=== PATIENT | male | born 1970 | race Caucasian/White ===

== ENCOUNTER 2016-07-10 09:41 | Observation (INO) | payer BC, OTHER ==
[~2016-07-10] VITALS: Ht 182.9 cm; Wt 100.5 kg
[~2016-07-10 09:41] MED LIST: ASPI81TA28 PO; IBUP-1050 PO; LPR25 PO; NTRGSL/4 UT; PNC/500 PO; SIMV20TA2 PO
[2016-07-10] MEDS ORDERED: NITROGLYCERIN 0.4 MG SL PER TAB CHARGE SL STA (10:06)
[2016-07-10] MEDS ORDERED: ASPIRIN 324 MG CHEW PO STA (10:06)
--- NOTE | 2016-07-10 10:28 | DIAGNOSTIC IMAGING REPORT ---
CHEST ONE VIEW PORTABLE HISTORY: Atypical chest pain COMPARISON: Chest 11/12/2015. FINDINGS: The lungs are clear. Cardiac silhouette is normal in size. No pleural effusions. No pneumothorax. IMPRESSION: No acute process. Electronically signed by: James Doty M.D. 07/10/2016 10:27 AM Dictated Date/Time: 07/10/2016 10:26 AM
[2016-07-10 10:32] LABS: BASO % 0.3 %; BASO ABS # 0.03 K/uL (0-0.2); COMPLETE YES; EOS % 2.5 %; HEMATOCRIT 47.1 % (42-52); IG% 0.3 %; LYMPH % 17.4 %; LYMPH ABS # 1.81 K/uL (1.2-3.4); MEAN CELL VOLUME 89.2 fL (80-100); MEAN CORPUSCULAR HEMOGLOBIN 30.1 pg (25-34); MEAN CORPUSCULAR HGB CONC 33.8 g/dl (32-36); MEAN PLATELET VOLUME 9.8 fL (7.4-10.4); MONO % 6.3 %; NEUT % 73.2 %; PLATELET COUNT 255 K/uL (130-400); RED BLOOD COUNT 5.28 M/uL (4.7-6.1); WHITE BLOOD COUNT 10.39 K/uL (4.8-10.8)
[2016-07-10 10:44] LABS: BLOOD UREA NITROGEN 16 mg/dl (7-18); BUN/CREATININE RATIO 19.2 (10-20); CALCIUM 8.7 mg/dl (8.5-10.1); CARBON DIOXIDE 28 mmol/L (21-32); CHLORIDE 107 mmol/L (98-107); CREATININE 0.85 mg/dl (0.60-1.40); GLUCOSE 102 mg/dl (70-99); POTASSIUM 3.9 mmol/L (3.5-5.1); SODIUM 141 mmol/L (136-145)
--- NOTE | 2016-07-10 11:35 | EMERGENCY ROOM VISIT NOTE ---
History First contact with patient: 09:56 Chief Complaint: SHORTNESS OF BREATH Stated Complaint: BURNING PAIN IN L SIDE OF CHEST SOB Nursing Triage Summary: Pt states when he woke up "there was like a fire right here in my chest" points to left lateral chest. "and I'm having trouble getting complete breaths". History of Present Illness The patient is a 46 year old male who presents to the Emergency Room with complaints of chest pain. The patient has had a 3 day history of dull chest discomfort radiating to the left shoulder. This morning the patient states the pain was sharp, continuous, and felt like a poker to the left side of his chest. He also complains of left arm numbness and tingling over the posterior aspect of the left arm with numbness in his finger tips. He also says that he is having pain when taking deep breaths. The patient also complains of blurriness of vision this morning upon waking up. The patient has a history of LAD stent in 2012 and has been seen by Cardiology but has not been taking his prescribed medications or following up recently due to a lack of insurance. He has been taking a baby aspirin until a few days ago when he ran out. He denies any fevers, chills, nausea, vomiting, abdominal pain, and dizziness. Review of Systems See HPI for pertinent positives and negatives. A total of ten systems were reviewed and were otherwise negative. Past Medical/Surgical History Medical Problems: (1) Asthma (2) CAD (coronary artery disease) (3) Dyslipidemia (4) Epilepsy (5) History of placement of stent in LAD coronary artery (6) Hypertension Surgical Problems: (1) History of hip surgery (2) Hx of cardiac cath Family History Alchohol abuse FATHER Angina MOTHER CABG FATHER GRANDFATHER (50's) Dyslipidemia FATHER BROTHER Hypertension FATHER MOTHER Irregular heart rhythms BROTHER WI in 20's or 30's FATHER Social History Smoking Status: Current Every Day Smoker Alcohol Use: none Drug Use: marijuana, other Marital Status: Housing Status: lives with family Occupation Status: employed Current/Historical Medications No Active Prescriptions or Reported Meds Allergies Coded Allergies: No Known Allergies (Unverified , 07/10/16) Physical Exam Vital Signs Date Time Temp Pulse Resp B/P Pulse Ox O2 Delivery O2 Flow Rate FiO2 07/10/16 10:14 74 07/10/16 09:49 36.7 78 20 131/90 99 Room Air 07/10/16 09:48 97 Room Air Physical Exam GENERAL: Awake, alert, well-appearing, in mild distress HENT: Normocephalic, atraumatic. EYES: Normal conjunctiva. Sclera non-icteric. NECK: Supple. Trachea midline RESPIRATORY: Decreased breath sounds, Good inspiratory effort CARDIAC: Regular rate, normal rhythm. Extremities warm and well perfused. Pulses equal. ABDOMEN: Soft, non-distended. No tenderness to palpation. No rebound or guarding. No masses. RECTAL: Deferred. MUSCULOSKELETAL: Chest examination reveals no tenderness. The back is symmetrical on inspection without obvious abnormality. LOWER EXTREMITIES: Calves are equal size bilaterally and non-tender. No edema. No discoloration. NEURO: Normal sensorium. No sensory or motor deficits noted. SKIN: No rash or jaundice noted. Medical Decision & Procedures Laboratory Results 07/10/16 10:18 Red Blood Count 5.28, Mean Corpuscular Volume 89.2, Mean Corpuscular Hemoglobin 30.1, Mean Corpuscular Hemoglobin Concent 33.8, Mean Platelet Volume 9.8, Neutrophils (%) (Auto) 73.2, Lymphocytes (%) (Auto) 17.4, Monocytes (%) (Auto) 6.3, Eosinophils (%) (Auto) 2.5, Basophils (%) (Auto) 0.3, Neutrophils # (Auto) 7.61, Lymphocytes # (Auto) 1.81, Monocytes # (Auto) 0.65, Eosinophils # (Auto) 0.26, Basophils # (Auto) 0.03 07/10/16 10:18 Test 07/10/16 10:18 White Blood Count 10.39 K/uL (4.8-10.8) Red Blood Count 5.28 M/uL (4.7-6.1) Hemoglobin 15.9 g/dL (14.0-18.0) Hematocrit 47.1 % (42-52) Mean Corpuscular Volume 89.2 fL (80-100) Mean Corpuscular Hemoglobin 30.1 pg (25-34) Mean Corpuscular Hemoglobin Concent 33.8 g/dl (32-36) Platelet Count 255 K/uL (130-400) Mean Platelet Volume 9.8 fL (7.4-10.4) Neutrophils (%) (Auto) 73.2 % Lymphocytes (%) (Auto) 17.4 % Monocytes (%) (Auto) 6.3 % Eosinophils (%) (Auto) 2.5 % Basophils (%) (Auto) 0.3 % Neutrophils # (Auto) 7.61 K/uL (1.4-6.5) Lymphocytes # (Auto) 1.81 K/uL (1.2-3.4) Monocytes # (Auto) 0.65 K/uL (0.11-0.59) Eosinophils # (Auto) 0.26 K/uL (0-0.5) Basophils # (Auto) 0.03 K/uL (0-0.2) RDW Standard Deviation 44.9 fL (36.4-46.3) RDW Coefficient of Variation 13.6 % (11.5-14.5) Immature Granulocyte % (Auto) 0.3 % Immature Granulocyte # (Auto) 0.03 K/uL (0.00-0.02) Anion Gap 6.0 mmol/L (3-11) Est Creatinine Clear Calc Drug Dose 130.5 ml/min Estimated GFR () 122.0 Estimated GFR (Non- 105.2 BUN/Creatinine Ratio 19.2 (10-20) Calcium Level 8.7 mg/dl (8.5-10.1) Troponin I < 0.015 ng/ml (0-0.045) Medications Administered Medications (Trade) Dose Ordered Sig/Gio Route Start Time Stop Time Status Last Admin Dose Admin Aspirin (Aspirin Chew) 324 mg NOW STAT PO 07/10/16 10:06 07/10/16 10:09 DC 07/10/16 10:19 324 MG Nitroglycerin (Nitrostat Tab) 0.4 mg NOW STAT SL 07/10/16 10:06 07/10/16 10:09 DC 07/10/16 10:06 0.4 MG Medical Decision Patient is a 46 year old male that presents with a 3 day history of left sided chest pain Etiologies such as cardiac ischemia, aortic dissection, pulmonary embolism, pneumonia, pneumothorax, musculoskeletal, infections, gastrointestinal, as well as others were entertained. - Labs Ordered: CBC, BMP - Imaging Ordered: CXR, EKG - Medications: Aspirin, NTG - Troponin Negative, EKG appears to be sinus rhythm with no ST elevation and normal rate - Chest pain improved with SL NTG, remaining chest discomfort that is dull similar to chest pain prior to this morning - Discussed patient with [facility] Hospitalist who agrees to see the patient Impression Primary Impression: Chest pain Departure Information Dispostion Admitted as an inpatient Condition FAIR Prescriptions No Active Prescriptions or Reported Meds Referrals August Demarco D.OMarcelo (PCP) Patient Instructions [facility] Problem Qualifiers Primary Impression: Chest pain Chest pain type: unspecified Qualified Codes: R07.9 - Chest pain, unspecified
[2016-07-10 11:40] VITALS: O2SAT 99; Ht 182.9 cm; Wt 100.5 kg
[2016-07-10] MEDS ORDERED: ALUMINUM/MAGNESIUM/SIMETH (MAALOX MAX) 30 ML UDC PO PRN (11:45)
[2016-07-10] MEDS ORDERED: MoRPHine SULFATE 2 MG/ML CARP IV PRN (11:45)
[2016-07-10] MEDS ORDERED: ACETAMINOPHEN 325 MG TAB PO PRN (11:45)
[2016-07-10] MEDS ORDERED: MAGNESIUM HYDROXIDE SUSP 30 ML UDC PO PRN (11:45)
[2016-07-10] MEDS ORDERED: ONDANSETRON INJ 2 MG/ML 2 ML VIAL IV PRN (11:45)
[2016-07-10] MEDS ORDERED: NITROGLYCERIN 0.4 MG SL PER TAB CHARGE SL PRN (11:45)
--- NOTE | 2016-07-10 12:22 | HISTORY & PHYSICAL EXAMINATION ---
DATE OF ADMISSION: 07/10/2016 CHIEF COMPLAINT: Chest pain. HISTORY OF PRESENT ILLNESS: This is a 46-year-old male with past medical history significant for CAD, status post stent to LAD in 2012, hypertension, hyperlipidemia, unstable angina, presents with the chest pain. The patient is also noncompliant with his medications. The patient says he has not taken his medications since last 2 months since he ran out of his insurance, currently patient has insurance and he is planning to go to his family doctor next week to refill his medications, but since last 2-3 days he is having left sided chest pain. He thought initially of muscle pull because he was doing some heavy work at his work place, but today morning, he had a very severe stabbing pain shooting to the left side of chest and radiating into his left arm and he felt some numbness and tingling in his fingers, and he decided to come to the ER. In the ER, he was given nitro and aspirin and his pain is is almost resolved. During the pain, he was having some diaphoresis and shortness of breath. Denies any nausea, vomiting and headaches. No fever, no chills, no cough. Otherwise,he was doing okay until this episode. Currently, resting comfortably and hemodynamically stable. ALLERGIES: No known drug allergies. PAST MEDICAL HISTORY: As mentioned above. PAST SURGICAL HISTORY: Status post cardiac catheterization, status post stent placement. MEDICATIONS: The patient currently not taking any medications. FAMILY HISTORY: Significant for father had a heart disorder at age of 30. Maternal grandfather had heart disorder and bypass at age of 50. Mother had CAD. Father has history of stroke and alcoholism. SOCIAL HISTORY: The patient smokes less than half a pack a day for many years. He is attempted to quit smoking several times and restarted a couple months ago. Alcohol - occasionally; marijuana - occasionally. History of cocaine abuse. REVIEW OF SYMPTOMS: As per HPI. Rest of review of symptoms negative. PHYSICAL EXAMINATION: GENERAL: The patient is of moderate built, not in distress. VITAL SIGNS: Temperature 36.7, pulse 74, respiratory rate 20, blood pressure 131/90, oxygen 99% room air. HEENT: No pallor, no icterus. Pupils equal, round, and reactive to light. NECK: No neck masses. No JVD, no carotid bruits. CARDIOVASCULAR: S1, S2 heard, regular rate and rhythm, no murmur, no gallop. RESPIRATORY SYSTEM: Normal AP diameter. No accessory muscle use. No wheezing, no crackles. ABDOMEN: Soft, bowel sounds present. Nontender. No distention. CENTRAL NERVOUS SYSTEM: Cranial nerves II-XII grossly intact. Nonfocal. EXTREMITIES: No edema, no erythema. LABORATORY DATA: WBC 10.3, hemoglobin 15.9, hematocrit 47.1, platelets 255. Sodium 141, potassium 3.9, chloride 107, bicarbonate 28, BUN 16, creatinine 0.8, serum glucose 102, calcium 8.7. Troponin I less than 0.015. IMAGING DATA: Chest x-ray: No acute process seen. EKG: Normal sinus rhythm with rate of 73. No acute ST changes seen. No significant change from previous EKG. ASSESSMENT AND PLAN: This is a 46-year-old male who presents with chest pain. 1. Chest pain, history of coronary artery disease status post stent to left anterior descending artery in , hx of medical noncompliance, not taking any of his cardiac medications. He was admitted with similar problem in November 2015 and stress test at that time was negative and was discharged on aspirin, Zocor, and Lopressor. Says not taking medication since couple of months.Says currently he got insurance and was planning to follow with family doctor for his medication refills., But presents to Er with chest pain. His initial workup is negative. Will observe on tele floor, serial cardiac enzymes, echocardiogram and will consult cardiology for further recommendations. Will also follow with fasting lipid profile, HbA1c levels. Nitro and morphine p.r.n. for pain, and place him back on aspirin, Zocor, and Lopressor. 2. History of hyperlipidemia. Follow the fasting lipid profile. Start on Zocor. 3. History of asthma in remission, not on any inhalers, stable. 4. History of epilepsy, only occurred at age of 15 or 16, currently not on medications. 5. Deep vein thrombosis prophylaxis, sequential compression devices and TEDs. 6. Disposition: Observation tele floor. Expect to discharge home and follow with his family doctor and cardiology. Level 1 full code. MTDD
[2016-07-10 12:25] VITALS: O2SAT 99
--- NOTE | 2016-07-10 13:39 | EMERGENCY ROOM VISIT NOTE ---
ED Visit Note First contact with patient: 09:56 Resident Physician Supervision Note: Dr. Davis Torres was resident physician during care of patient. I separately evaluated patient and did history and exam. I discussed the case with the resident and generally agree with the findings and plan. 46 yr old male with left chest pain radiating to left arm who has history of cad with stenting and admits not taking medications over last few months. No evidence ACS currently but given acute worsening of symptoms this am will need further cardiac rule out given his high risk status. Stable, EKG OK, Trop negative and patient feeling better with Nitro. He does not have evidence of PE , dissection, infectious etiology. Diagnosis: Left Chest Pain Medication Non-Compliance Documented By: Hugh Pulido MD
[2016-07-10] MEDS ORDERED: IV FLUIDS COMPLETED PRN (13:45)
[2016-07-10 14:30] VITALS: BP 129/82; PULSE 80; TEMP 36.7; O2SAT 96
[2016-07-10 16:22] VITALS: BP 124/75; PULSE 56; TEMP 36.4; O2SAT 97
[2016-07-10 19:53] VITALS: BP 125/83; PULSE 52; TEMP 36.8; O2SAT 97
[2016-07-10 19:59] LABS: CKMB/CK RATIO 2.7 (0-3.0)
[2016-07-10] MEDS ORDERED: SIMVASTATIN 20 MG TAB PO SCH (21:00)
[2016-07-10] MEDS: METOPROLOL TARTRATE 25 MG TAB PO SCH (21:00)
[2016-07-11 00:29] VITALS: BP 118/78; PULSE 64; TEMP 37; O2SAT 96
[2016-07-11 03:53] LABS: BASO % 0.4 %; BASO ABS # 0.04 K/uL (0-0.2); COMPLETE YES; EOS % 3.2 %; HEMATOCRIT 47.1 % (42-52); IG% 0.5 %; LYMPH % 23.8 %; LYMPH ABS # 2.72 K/uL (1.2-3.4); MEAN CORPUSCULAR HEMOGLOBIN 29.9 pg (25-34); MEAN CORPUSCULAR HGB CONC 33.5 g/dl (32-36); MEAN PLATELET VOLUME 9.7 fL (7.4-10.4); NEUT % 65.1 %; PLATELET COUNT 254 K/uL (130-400); RED BLOOD COUNT 5.29 M/uL (4.7-6.1); WHITE BLOOD COUNT 11.41 K/uL (4.8-10.8)
[2016-07-11 04:20] LABS: BLOOD UREA NITROGEN 14 mg/dl (7-18); CALCIUM 8.5 mg/dl (8.5-10.1); CARBON DIOXIDE 29 mmol/L (21-32); CHLORIDE 105 mmol/L (98-107); CREATININE 0.87 mg/dl (0.60-1.40); GLUCOSE 90 mg/dl (70-99); MAGNESIUM 2.4 mg/dl (1.8-2.4); POTASSIUM 3.9 mmol/L (3.5-5.1); SODIUM 139 mmol/L (136-145)
[2016-07-11 04:26] LABS: CHOLESTEROL 223 mg/dl (0-200); CHOLESTEROL/HDL RATIO 5.6; CKMB/CK RATIO 3.1 (0-3.0); HDL CHOLESTEROL 40 mg/dl; LDL CHOLESTEROL CALCULATED 154 mg/dl; TRIGLYCERIDES 144 mg/dl (0-150); VERY LOW DENSITY LIPOPROT CALC 29 mg/dl
[2016-07-11 04:35] VITALS: BP 124/84; PULSE 52; TEMP 36.8; O2SAT 97
[2016-07-11 07:18] VITALS: BP 138/86; PULSE 62; TEMP 36.7; O2SAT 95
[2016-07-11] MEDS: METOPROLOL TARTRATE 25 MG TAB PO SCH (08:31)
[2016-07-11 08:47] LABS: ESTIMATED AVERAGE GLUCOSE 111 mg/dl; HA1C FLAG Normal (Normal)
[2016-07-11] MEDS ORDERED: ASPIRIN 81 MG ECTAB PO SCH (09:00)
--- NOTE | 2016-07-11 10:20 | CARDIOLOGY CONSULTATION ---
DATE OF CONSULTATION: 07/11/2016 REFERRING PHYSICIAN: [facility] saji. REASON FOR CONSULTATION: Chest pain. HISTORY OF PRESENT ILLNESS: This is a 46-year-old male patient with a past history of coronary artery disease and in 2012, he received a stent within the LAD at [facility]. Unfortunately, the patient was lost to follow up and has had no cardiac care following that procedure. He has also been noncompliant with his medications. He presented to the Emergency Department with atypical chest pain. He describes it as hot poker through his chest. He has had a history of gastroesophageal reflux with occasional discomfort. His pain lasted for several hours before presenting to the Emergency Department. After admission, his cardiac markers have been negative. His EKGs have been within normal limits. He has been placed back on his medications and had an uneventful night. ALLERGIES: No known medical allergies. PAST MEDICAL HISTORY: As outlined above, the patient has a coronary artery disease with a prior stent to the LAD in 2012. He has a history of hypertension, dyslipidemia and GERD. He has prior history of diabetes, strokes or kidney disease. SOCIAL HISTORY: The patient is a cigarette smoker. He does work and is employed at the [email or web address] and at a [employer]. FAMILY MEDICAL HISTORY: Significant for father who of early heart disease. REVIEW OF SYSTEMS: A 10-point review of systems is negative except for the history of chief complaint. PHYSICAL EXAMINATION: GENERAL: He is alert and oriented, in no acute distress. VITAL SIGNS: Temperature is afebrile, pulse is regular at 70 beats per minute, and blood pressure is 130/90. HEENT: He is normocephalic. Pupils are equal and reactive to light. Extraocular muscles are intact bilaterally. NECK: The neck veins are flat. Carotids have good upstrokes bilaterally without bruits. Thyroid is nonpalpable. RESPIRATORY: Breath sounds equal bilaterally and clear to auscultation. CARDIOVASCULAR: Heart has regular rhythm. Normal S1 and S2. No S3 or S4. No cardiac rubs or murmurs. GASTROINTESTINAL: Abdomen is soft and nontender without organomegaly. EXTREMITIES: Free of edema, digit clubbing, or cyanosis. NEUROLOGIC: Grossly intact. SKIN: Warm to touch. LYMPH NODES: Negative to palpation. LABORATORY DATA: Cardiac markers are negative and EKG is within normal limits. IMPRESSION: 1. Atypical chest pain. 2. History of prior coronary artery stent within the LAD. 3. Medical noncompliance. RECOMMENDATIONS: At this point, I think a best option is to proceed with an exercise stress echocardiogram. If that study is unremarkable, then I believe the patient may be discharged to outpatient followup. If it is positive, then we would have to proceed with a cardiac catheterization. I have explained the risks, benefits and intent of the stress test to the patient. He is willing to proceed. LEO
--- NOTE | 2016-07-11 10:25 | ECHOCARDIOGRAM REPORT ---
*NOTICE TO RECEIVING CONSTITUTION PARTY AGENCY This information is strictly Confidential and protected under [place] law. [place] law prohibits you from making any further disclosure of this information unless further disclosure is expressly permitted by the written consent of the person to whom it pertains or is authorized by law. A general authorization for the release of medical or other information is not sufficient for this purpose. Hospital accepts no responsibility if the information is made available to any other person, INCLUDING THE PATIENT. Interpretation Summary * Name: MELODY CHOUDHURY Study Date: 07/10/2016 01:56 PM BP: 133/88 mmHg * Patient Location: [facility] HR: 55 * : 1970 (M/d/yyyy) Gender: Male Height: 70 in * Age: 46 yrs Ethnicity: [place] Weight: 221 lb * Ordering Physician: Jerald Tirado * Referring Physician: Self, Referred * Performed By: Katherine Mcclellan RCS * * Reason For Study: CHEST PAIN * BSA: 2.2 m2 * -- Conclusions -- * The left ventricular wall motion is normal. * No regional wall motion abnormalities noted. * There is mild concentric left ventricular hypertrophy. * The LV Ejection Fraction = 60-65%. * There is no significant valvualar heart disease. Procedure Details * A complete two-dimensional transthoracic echocardiogram was performed (2D, M-mode, Doppler and color flow Doppler). Left Ventricle * The left ventricle is normal in size. * There is mild concentric left ventricular hypertrophy. * Left ventricular systolic function is normal. * Ejection Fraction = 60-65%. * The left ventricular wall motion is normal. * No regional wall motion abnormalities noted. Right Ventricle * The right ventricle is normal size. * The right ventricular systolic function is normal as assessed by tricuspid annular plane systolic excursion (TAPSE) (normal >1.5 cm). Atria * The left atrial size is normal. * Right atrial size is normal. * There is no evidence of atrial septal defect, but resolution does not allow assessment for a patent foramen ovale. Mitral Valve * The mitral valve is normal. * There is no mitral valve stenosis. * Significant mitral regurgitation is absent. Tricuspid Valve * The tricuspid valve is normal. * There is no tricuspid stenosis. * Significant tricuspid regurgitation is absent. * Doppler findings do not suggest pulmonary hypertension. Aortic Valve * The aortic valve is trileaflet. * Aortic stenosis is absent. * There is no significant aortic regurgitation. Pulmonic Valve * The pulmonary valve is not well seen, but the Doppler examination is normal without significant regurgitation or stenosis. Great Vessels * The aortic root and proximal ascending aorta are normal sized. Pericardium/Pleural * There is no pericardial effusion. Great Vessels * Normal inferior vena cava diameter and respiratory variation suggests normal central venous pressure. Left Ventricular Diastolic Function * The LV diastolic function is normal. MMode 2D Measurements and Calculations IVSd 1.3 cm IVSs 1.9 cm LVIDd 3.6 cm LVIDs 2.7 cm LVPWd 1.3 cm LVPWs 1.4 cm IVS/LVPW 1.0 FS 25.9 % EDV(Teich) 55.4 ml ESV(Teich) 26.6 ml EF(Teich) 51.9 % EDV(cubed) 47.6 ml ESV(cubed) 19.4 ml EF(cubed) 59.4 % % IVS thick 42.9 % % LVPW thick 7.6 % LV mass(C)d 162.3 grams LV mass(C)dI 74.5 grams/m\S\2 LV mass(C)s 160.5 grams LV mass(C)sI 73.7 grams/m\S\2 SV(Teich) 28.7 ml SI(Teich) 13.2 ml/m\S\2 SV(cubed) 28.3 ml SI(cubed) 13.0 ml/m\S\2 Ao root diam 3.9 cm Ao root area 11.9 cm\S\2 LA dimension 3.8 cm LA/Ao 0.97 LVOT diam 2.0 cm LVOT area 3.1 cm\S\2 LVAd ap4 38.3 cm\S\2 LVLd ap4 8.8 cm EDV(MOD-sp4) 135.3 ml EDV(sp4-el) 141.0 ml LVAs ap4 27.3 cm\S\2 LVLs ap4 8.6 cm ESV(MOD-sp4) 75.3 ml ESV(sp4-el) 73.1 ml EF(MOD-sp4) 44.3 % EF(sp4-el) 48.2 % LVAd ap2 39.5 cm\S\2 LVLd ap2 9.4 cm EDV(MOD-sp2) 135.3 ml EDV(sp2-el) 140.9 ml LVAs ap2 25.0 cm\S\2 LVLs ap2 8.2 cm ESV(MOD-sp2) 64.7 ml ESV(sp2-el) 64.9 ml EF(MOD-sp2) 52.2 % EF(sp2-el) 54.0 % LVLd %diff 6.2 % EDV(MOD-bp) 137.6 ml LVLs %diff -5.80 % ESV(MOD-bp) 72.2 ml EF(MOD-bp) 47.6 % SV(MOD-sp4) 59.9 ml SI(MOD-sp4) 27.5 ml/m\S\2 SV(MOD-sp2) 70.6 ml SI(MOD-sp2) 32.4 ml/m\S\2 SV(MOD-bp) 65.4 ml SI(MOD-bp) 30.1 ml/m\S\2 SV(sp4-el) 68.0 ml SI(sp4-el) 31.2 ml/m\S\2 SV(sp2-el) 76.0 ml SI(sp2-el) 34.9 ml/m\S\2 Doppler Measurements and Calculations MV E max lebron 64.3 cm/sec MV A max lebron 59.0 cm/sec MV E/A 1.1 MV P1/2t max lebron 84.7 cm/sec MV P1/2t 62.3 msec MVA(P1/2t) 3.5 cm\S\2 MV dec slope 398.6 cm/sec\S\2 MV dec time 0.24 sec Ao V2 max 111.3 cm/sec Ao max PG 5.0 mmHg Ao max PG (full) 0.38 mmHg JUVENAL(V,A) 3.0 cm\S\2 JUVENAL(V,D) 3.0 cm\S\2 LV V1 max PG 4.6 mmHg LV V1 max 106.9 cm/sec
[2016-07-11 11:34] VITALS: BP 124/82; PULSE 55; TEMP 36.6; O2SAT 95
[2016-07-11] MEDS ORDERED: NTRSLP4 SL (13:23)
[2016-07-11] MEDS ORDERED: SIMV40TA4 PO ×2 (13:23→13:27)
[2016-07-11] MEDS ORDERED: ASPEC81 PO (13:23)
[2016-07-11] MEDS ORDERED: LPR25 PO (13:23)
--- NOTE | 2016-07-11 13:25 | Discharge Instructions ---
Discharge Instructions Date of Service July 11, 2016. Admission Reason for Admission: Chest Pain Discharge Discharge Diagnosis / Problem: chest pain Discharge Goals Goal(s): Decrease discomfort, Improve function Activity Recommendations Activity Limitations: resume your previous activity . Instructions / Follow-Up Instructions / Follow-Up FOLLOWUP WITH FAMILY DOCTOR ON July AT 3:50PM. FOLLOWUP WITH CARDIOLOGY IN 3-4WEEKS Current Hospital Diet Patient's current hospital diet: AHA Diet (Heart Healthy) Discharge Diet Recommended Diet: AHA Diet (Heart Healthy) Pending Studies Studies pending at discharge: no Laboratory Results Hemoglobin A1c Test 07/11/16 03:25 Range/Units Estimated Average Glucose 111 mg/dl Hemoglobin A1c 5.5 4.5-5.6 % Lipid Panel Test 07/11/16 03:25 Range/Units Triglycerides Level 144 0-150 mg/dl Cholesterol Level 223 H 0-200 mg/dl HDL Cholesterol 40 mg/dl Cholesterol/HDL Ratio 5.6 LDL Cholesterol, Calculated 154 mg/dl Medical Emergencies . Who to Call and When: Medical Emergencies: If at any time you feel your situation is an emergency, please call 911 immediately. . Non-Emergent Contact Non-Emergency issues call your: Primary Care Provider . . "Provider Documentation" section prepared by Jerald Tirado. . VTE Core Measure Inpt VTE Proph given/why not?: SCD's
--- NOTE | 2016-07-11 14:02 | Progress Note ---
Internal Med Progress Note Date of Service: July 11, 2016. Provider Documentation: SUBJECTIVE: sitting on the chair comfortably no chest pain o sob since admission afebrile no nausea agrees to f/u with pcp OBJECTIVE: Vital Signs-as noted below Exam: General-alert and oriented. Not in distress ENT-Normal hearing Neck-no neck masses Lungs-cta b/l no wheezing or crackles Heart-s1 and s2 heard regular rate and rhythm no murmurs Abdomen-soft bowel sounds present non tender no distension Extremities-no edema no erythema Neuro-alert and awake moves extremities Lab data as noted below. ASSESSMENT & PLAN: : This is a 46-year-old male who presents with chest pain. 1. Chest pain, history of coronary artery disease status post stent to left anterior descending artery in , hx of medical noncompliance, not taking any of his cardiac medications. He was admitted with similar problem in November 2015 and stress test at that time was negative and was discharged on aspirin, Zocor, and Lopressor. Says not taking medication since couple of months.Says currently he got insurance and was planning to follow with family doctor for his medication refills., But presents to Er with chest pain. His initial workup is negative. Nitro and morphine p.r.n. for pain, and place him back on aspirin, Zocor, and Lopressor. 07/11/16 hba1c level 5.5 [id number] hdl 40 seail CE negative echo unremarkable cardiology planning for stress test if negative will discharge and needs followup with family doctor and cardiology will give prescriptions for his medications. 2. History of hyperlipidemia. lipid profile as above. Re Started on Zocor. 3. History of asthma in remission, not on any inhalers, stable. 4. History of epilepsy, only occurred at age of 15 or 16, currently not on medications. 5. Deep vein thrombosis prophylaxis, sequential compression devices and TEDs. 6. Disposition: Possible d/c today if stress test negative Vital Signs: Date Time Temp Pulse Resp B/P Pulse Ox O2 Delivery O2 Flow Rate FiO2 07/11/16 12:00 Room Air 07/11/16 11:34 36.6 55 18 124/82 95 Room Air 07/11/16 08:00 Room Air 07/11/16 07:18 36.7 62 138/86 95 Room Air 07/11/16 04:35 36.8 52 16 124/84 97 Room Air 07/11/16 04:35 Room Air 07/11/16 00:29 37.0 64 18 118/78 96 Room Air 07/11/16 00:00 Room Air 07/10/16 19:53 36.8 52 18 125/83 97 Room Air 07/10/16 19:47 Room Air 07/10/16 16:22 36.4 56 18 124/75 97 Room Air 07/10/16 16:00 Room Air 07/10/16 14:30 36.7 80 18 129/82 96 Room Air Lab Results: Results Past 24 Hours Test 07/10/16 19:32 07/11/16 03:25 Range/Units Total Creatine Kinase 52 45 39-308 U/L Creatine Kinase MB 1.4 1.4 0.5-3.6 ng/ml Creatine Kinase MB Ratio 2.7 3.1 0-3.0 Troponin I < 0.015 < 0.015 0-0.045 ng/ml White Blood Count 11.41 4.8-10.8 K/uL Red Blood Count 5.29 4.7-6.1 M/uL Hemoglobin 15.8 14.0-18.0 g/dL Hematocrit 47.1 42-52 % Mean Corpuscular Volume 89.0 80-100 fL Mean Corpuscular Hemoglobin 29.9 25-34 pg Mean Corpuscular Hemoglobin Concent 33.5 32-36 g/dl Platelet Count 254 130-400 K/uL Mean Platelet Volume 9.7 7.4-10.4 fL Neutrophils (%) (Auto) 65.1 % Lymphocytes (%) (Auto) 23.8 % Monocytes (%) (Auto) 7.0 % Eosinophils (%) (Auto) 3.2 % Basophils (%) (Auto) 0.4 % Neutrophils # (Auto) 7.43 1.4-6.5 K/uL Lymphocytes # (Auto) 2.72 1.2-3.4 K/uL Monocytes # (Auto) 0.80 0.11-0.59 K/uL Eosinophils # (Auto) 0.36 0-0.5 K/uL Basophils # (Auto) 0.04 0-0.2 K/uL RDW Standard Deviation 44.2 36.4-46.3 fL RDW Coefficient of Variation 13.5 11.5-14.5 % Immature Granulocyte % (Auto) 0.5 % Immature Granulocyte # (Auto) 0.06 0.00-0.02 K/uL Sodium Level 139 136-145 mmol/L Potassium Level 3.9 3.5-5.1 mmol/L Chloride Level 105 98-107 mmol/L Carbon Dioxide Level 29 21-32 mmol/L Anion Gap 5.0 3-11 mmol/L Blood Urea Nitrogen 14 7-18 mg/dl Creatinine 0.87 0.60-1.40 mg/dl Est Creatinine Clear Calc Drug Dose 127.5 ml/min Estimated GFR () 120.8 Estimated GFR (Non- 104.2 BUN/Creatinine Ratio 16.0 10-20 Random Glucose 90 70-99 mg/dl Estimated Average Glucose 111 mg/dl Hemoglobin A1c 5.5 4.5-5.6 % Calcium Level 8.5 8.5-10.1 mg/dl Magnesium Level 2.4 1.8-2.4 mg/dl Triglycerides Level 144 0-150 mg/dl Cholesterol Level 223 0-200 mg/dl HDL Cholesterol 40 mg/dl LDL Cholesterol, Calculated 154 mg/dl VLDL Cholesterol, Calculated 29 mg/dl Cholesterol/HDL Ratio 5.6
[2016-07-11 15:30] VITALS: BP 124/79; PULSE 55; TEMP 36.9; O2SAT 96
[2016-07-11 16:30] VITALS: BP 138/86; PULSE 62; TEMP 36.7; O2SAT 95
--- NOTE | 2016-07-11 16:50 | EXERCISE STRESS ECHO ---
*NOTICE TO RECEIVING [employer] This information is strictly Confidential and protected under [place] law. [place] law prohibits you from making any further disclosure of this information unless further disclosure is expressly permitted by the written consent of the person to whom it pertains or is authorized by law. A general authorization for the release of medical or other information is not sufficient for this purpose. Hospital accepts no responsibility if the information is made available to any other person, INCLUDING THE PATIENT. Interpretation Summary * STRESS STUDY: Normal exercise stress echocardiogram. No echocardiographic or ECG evidence of myocardial ischemia having achieved heart rate adequate for diagnostic purposes. * -- Conclusions -- * STRESS STUDY: Normal exercise stress echocardiogram. No echocardiographic or ECG evidence of myocardial ischemia having achieved heart rate adequate for diagnostic purposes. Procedure Details * ECHOEX, CPT #41646 * A contrast injection of Definity was performed to improve assessment of LV function. * Contrast was injected into an intravenous site in the right arm. * One vial of Definity ultrasound contrast was diluted in normal saline to a total volume of 10 ml. A total of '4' ml of solution was administered during imaging. * Lot # [id number] of Definity utilized for procedure. * Expiration date JUL 30. * The attending nurse who injected the contrast agent was Ivan Reid RN. Left Ventricle * Ejection Fraction = 65-70%. Stress Parameters * Normal baseline electrocardiogram. * Stress ECG: No ST changes. No arrhythmias. * The stress ECG response was normal * The stress portion of this study was personally supervised by the undersigned interpreting physician. * Rest heart rate was '62' BPM. * Rest blood pressure was '137/78' * Maximum heart rate achieved was 179 bpm. * Maximum heart rate was 102 % of maximum age-predicted heart rate. * Maximum blood pressure was '195/86' * Total exercise time was '11:11' * Maximum exercise MET level achieved was '13.40' METS * Maximum treadmill speed was '4.20' miles per hour. * Maximum treadmill elevation was '16.00'% grade. * Exercise was terminated due to 'fatigue' MMode 2D Measurements and Calculations IVSd 0.74 cm LVIDd 4.3 cm LVIDs 2.7 cm LVPWd 0.81 cm IVS/LVPW 0.91 FS 36.9 % EDV(Teich) 84.1 ml ESV(Teich) 27.7 ml EF(Teich) 67.1 % EDV(cubed) 80.8 ml ESV(cubed) 20.3 ml EF(cubed) 74.9 % LV mass(C)d 101.9 grams LV mass(C)dI 46.8 grams/m\S\2 SV(Teich) 56.4 ml SI(Teich) 25.9 ml/m\S\2 SV(cubed) 60.5 ml SI(cubed) 27.8 ml/m\S\2 LVAd ap4 34.7 cm\S\2 LVLd ap4 8.6 cm EDV(MOD-sp4) 112.2 ml EDV(sp4-el) 118.9 ml LVAs ap4 16.8 cm\S\2 LVLs ap4 6.5 cm ESV(MOD-sp4) 34.3 ml ESV(sp4-el) 36.7 ml EF(MOD-sp4) 69.4 % EF(sp4-el) 69.2 % LVAd ap2 32.2 cm\S\2 LVLd ap2 8.1 cm EDV(MOD-sp2) 103.1 ml EDV(sp2-el) 109.0 ml LVAs ap2 16.8 cm\S\2 LVLs ap2 6.7 cm ESV(MOD-sp2) 35.1 ml ESV(sp2-el) 35.9 ml EF(MOD-sp2) 66.0 % EF(sp2-el) 67.1 % LVLd %diff -6.11 % EDV(MOD-bp) 111.3 ml LVLs %diff 3.0 % ESV(MOD-bp) 34.5 ml EF(MOD-bp) 69.0 % SV(MOD-sp4) 77.9 ml SI(MOD-sp4) 35.8 ml/m\S\2 SV(MOD-sp2) 68.0 ml SI(MOD-sp2) 31.2 ml/m\S\2 SV(MOD-bp) 76.8 ml SI(MOD-bp) 35.3 ml/m\S\2 SV(sp4-el) 82.3 ml SI(sp4-el) 37.8 ml/m\S\2 SV(sp2-el) 73.2 ml SI(sp2-el) 33.6 ml/m\S\2
--- NOTE | 2016-07-11 17:02 | Discharge Summary ---
Discharge Summary Date of Service July 11, 2016. Discharge Summary Admission Date: July 10, 2016 at 11:42 Discharge Date: July 11, 2016 Discharge Disposition: Home Principal Diagnosis: chest pain Secondary Diagnoses/Problems: CAD, status post stent to LAD in 2012, hypertension, hyperlipidemia, unstable angina Procedures: ECHO: The left ventricular wall motion is normal. * No regional wall motion abnormalities noted. * There is mild concentric left ventricular hypertrophy. * The LV Ejection Fraction = 60-65%. * There is no significant valvualar heart disease. STRESS ECHO: NEGATIVE STUDY Consultations: CARDIOLOGY Medication Reconciliation New Medications: Simvastatin (Zocor) 40 Mg Tab 1 TAB PO HS for 30 Days, #30 TAB 2 Refills Aspirin (Aspirin EC Low Dose) 81 Mg Ectab 81 MG PO QAM, #30 2 Refills Metoprolol Tartrate (Lopressor) 25 Mg Tab 12.5 MG PO BID for 30 Days, #30 TAB 2 Refills Nitroglycerin (Nitrostat) 0.4 Mg/1 Tab Subl 0.4 MG SL UD PRN for Chest Pain, #30 Admission Information HPI (per Admitting provider): This is a 46-year-old male with past medical history significant for CAD, status post stent to LAD in 2012, hypertension, hyperlipidemia, unstable angina, presents with the chest pain. The patient is also noncompliant with his medications. The patient says he has not taken his medications since last 2 months since he ran out of his insurance, currently patient has insurance and he is planning to go to his family doctor next week to refill his medications, but since last 2-3 days he is having left sided chest pain. He thought initially of muscle pull because he was doing some heavy work at his work place, but today morning, he had a very severe stabbing pain shooting to the left side of chest and radiating into his left arm and he felt some numbness and tingling in his fingers, and he decided to come to the ER. In the ER, he was given nitro and aspirin and his pain is is almost resolved. During the pain, he was having some diaphoresis and shortness of breath. Denies any nausea, vomiting and headaches. No fever, no chills, no cough. Otherwise,he was doing okay until this episode. Currently, resting comfortably and hemodynamically stable. Physical Exam (per Admitting): GENERAL: The patient is of moderate built, not in distress. VITAL SIGNS: Temperature 36.7, pulse 74, respiratory rate 20, blood pressure 131/90, oxygen 99% room air. HEENT: No pallor, no icterus. Pupils equal, round, and reactive to light. NECK: No neck masses. No JVD, no carotid bruits. CARDIOVASCULAR: S1, S2 heard, regular rate and rhythm, no murmur, no gallop. RESPIRATORY SYSTEM: Normal AP diameter. No accessory muscle use. No wheezing, no crackles. ABDOMEN: Soft, bowel sounds present. Nontender. No distention. CENTRAL NERVOUS SYSTEM: Cranial nerves II-XII grossly intact. Nonfocal. EXTREMITIES: No edema, no erythema. Hospital Course : This is a 46-year-old male who presents with chest pain. 1. Chest pain, history of coronary artery disease status post stent to left anterior descending artery in , hx of medical noncompliance, not taking any of his cardiac medications. He was admitted with similar problem in November 2015 and stress test at that time was negative and was discharged on aspirin, Zocor, and Lopressor. Says not taking medication since couple of months.Says currently he got insurance and was planning to follow with family doctor for his medication refills., But presents to Er with chest pain. His initial workup is negative. Nitro and morphine p.r.n. for pain, and place him back on aspirin, Zocor, and Lopressor. 07/11/16 hba1c level 5.5 [id number] hdl 40 seail CE negative echo unremarkable cardiology planning for stress test if negative will discharge and needs followup with family doctor and cardiology will give prescriptions for his medications. 2. History of hyperlipidemia. lipid profile as above. Re Started on Zocor. 3. History of asthma in remission, not on any inhalers, stable. 4. History of epilepsy, only occurred at age of 15 or 16, currently not on medications. 5. Deep vein thrombosis prophylaxis, sequential compression devices and TEDs. 6. Disposition: Possible d/c today if stress test negative Total time spent on discharge = 35MINUTES This includes examination of the patient, discharge planning, medication reconciliation, and communication with other providers. Discharge Instructions Discharge Instructions Date of Service July 11, 2016. Admission Reason for Admission: Chest Pain Discharge Discharge Diagnosis / Problem: chest pain Discharge Goals Goal(s): Decrease discomfort, Improve function Activity Recommendations Activity Limitations: resume your previous activity . Instructions / Follow-Up Instructions / Follow-Up FOLLOWUP WITH FAMILY DOCTOR ON July AT 3:50PM. FOLLOWUP WITH CARDIOLOGY IN 3-4WEEKS Current Hospital Diet Patient's current hospital diet: AHA Diet (Heart Healthy) Discharge Diet Recommended Diet: AHA Diet (Heart Healthy) Pending Studies Studies pending at discharge: no Laboratory Results Hemoglobin A1c Test 07/11/16 03:25 Range/Units Estimated Average Glucose 111 mg/dl Hemoglobin A1c 5.5 4.5-5.6 % Lipid Panel Test 07/11/16 03:25 Range/Units Triglycerides Level 144 0-150 mg/dl Cholesterol Level 223 H 0-200 mg/dl HDL Cholesterol 40 mg/dl Cholesterol/HDL Ratio 5.6 LDL Cholesterol, Calculated 154 mg/dl Medical Emergencies . Who to Call and When: Medical Emergencies: If at any time you feel your situation is an emergency, please call 911 immediately. . Non-Emergent Contact Non-Emergency issues call your: Primary Care Provider . . "Provider Documentation" section prepared by Jerald Tirado. . VTE Core Measure Inpt VTE Proph given/why not?: SCD's
[2016-08-30] MEDS ORDERED: IBUP-1050 PO (11:29)
[2016-09-04] MEDS ORDERED: OXYC-57 PO (14:50)
== END 2016-07-11 17:50 | disposition home or self-care (01) ==
LOC: ENRESERVTM → ENRESERVDT → C.EDB 09:42 → C.2E 11:42
PROVIDERS: ADMIT Internal Medicine; ATTEND Internal Medicine
DX: R07.89 Other chest pain (principal); I25.110 Atherosclerotic heart disease of native coronary artery with unstable angina pectoris; I10 Essential (primary) hypertension; E78.5 Hyperlipidemia, unspecified; Z95.5 Presence of coronary angioplasty implant and graft; K21.9 Gastro-esophageal reflux disease without esophagitis; F17.210 Nicotine dependence, cigarettes, uncomplicated; Z86.73 Personal history of transient ischemic attack (TIA), and cerebral infarction without residual deficits; Z91.14 Patient's other noncompliance with medication regimen

== ENCOUNTER 2016-08-27 16:34 | Emergency (ER) | payer BC ==
[~2016-08-27] VITALS: Ht 177.8 cm; Wt 101.2 kg
[~2016-08-27 16:34] MED LIST changes: +ASPEC81 PO; -ASPI81TA28 PO; -IBUP-1050 PO; -NTRGSL/4 UT; +NTRSLP4 SL; -PNC/500 PO; -SIMV20TA2 PO; +SIMV40TA4 PO
[2016-08-27 16:36] VITALS: BP 125/81; PULSE 78; TEMP 36.7; O2SAT 97; Ht 177.8 cm; Wt 101.2 kg
--- NOTE | 2016-08-27 17:08 | EMERGENCY ROOM VISIT NOTE ---
History Report prepared by Sandoval: Camila Ruiz Under the Supervision of: Dr. Constantine Moses D.O. First contact with patient: 16:44 Chief Complaint: GROIN PAIN Stated Complaint: HERNIA? LOWER ABD/GROIN PAIN History of Present Illness The patient is a 46 year old male who presents to the Emergency Room with complaints of intermittent groin pain beginning 6 weeks ago. The patient states that he strained when he was going to the bathroom 6 weeks ago and felt his "intestines moved past something". He reports that he never felt anything like that before and in the following weeks he experienced pressure and tightness in the area. He notes that he has noticed a bulge in his groin area. The patient states that today at work he burst into tears from a sensation that he felt in the area that he cannot describe but denies pain. Source of History: patient Onset: 6 weeks ago Position: other (groin) Quality: pressure Timing: intermittent Note: He states that he feels a groin bulge. Review of Systems See HPI for pertinent positives & negatives. A total of 10 systems reviewed and were otherwise negative. Past Medical & Surgical Medical Problems: (1) Asthma (2) CAD (coronary artery disease) (3) Dyslipidemia (4) Epilepsy (5) History of placement of stent in LAD coronary artery (6) Hypertension Surgical Problems: (1) History of hip surgery (2) Hx of cardiac cath Family History Alchohol abuse FATHER Angina MOTHER CABG FATHER GRANDFATHER (50's) Dyslipidemia FATHER BROTHER Hypertension FATHER MOTHER Irregular heart rhythms BROTHER ID in 20's or 30's FATHER Social History Smoking Status: Current Every Day Smoker Alcohol Use: none Drug Use: marijuana, other Marital Status: Housing Status: lives with family Occupation Status: employed Current/Historical Medications Scheduled Aspirin (Aspirin EC Low Dose), 81 MG PO QAM Metoprolol Tartrate (Lopressor), 12.5 MG PO BID Simvastatin (Zocor), 1 TAB PO HS Scheduled PRN Nitroglycerin (Nitrostat), 0.4 MG SL UD PRN for Chest Pain Allergies Coded Allergies: No Known Allergies (Unverified , 07/10/16) Physical Exam Vital Signs Date Time Temp Pulse Resp B/P (MAP) Pulse Ox O2 Delivery O2 Flow Rate FiO2 08/27/16 16:36 36.7 78 18 125/81 97 Room Air Physical Exam CONSTITUTIONAL/VITAL SIGNS: Reviewed / noted above. GENERAL: Non-toxic in appearance. INTEGUMENTARY: Warm, dry, and [place]. HEAD: Normocephalic. EYES: without scleral icterus or trauma. ENT/OROPHARYNX: clear and moist. LYMPHADENOPATHY/NECK: Is supple without lymphadenopathy or meningismus. RESPIRATORY: Lungs clear and equal. CARDIOVASCULAR: Regular rate and rhythm. GI/ABDOMEN: Soft and nontender. No organomegaly or pulsatile mass. No rebound or guarding. Normal bowel sounds. Inguinal hernia on exam, reducible. EXTREMITIES: Warm and well perfused. BACK: No CVA tenderness. NEUROLOGICAL: Intact without focal deficits. PSYCHIATRIC: normal affect. MUSCULOSKELETAL: Normally developed with good muscle tone. Medical Decision & Procedures ED Course 1644: Previous medical records were reviewed. The patient was evaluated in room C4. A complete history and physical examination was performed. 1658: Discussed the patient's case with Dr. Caro. He will see the patient tomorrow at 1430. 1559: I updated the patient. 1706: On reevaluation, the patient is doing well. I discussed the results and findings with the patient. He verbalized agreement of the treatment plan. The patient was discharged home. Medical Decision Differential considered: pancreatitis, hepatitis, or acute cholecystitis, AAA, UTI, pyelonephritis, kidney stones, appendicitis, diverticulitis, shingles, bowel obstruction mesenteric ischemia, intussusception,hernia, testicular torsion, ovarian torsion, ruptured ovarian cyst,ectopic , . Medication Reconciliation: I attest that I have personally reviewed the patient' s current medication list. Blood pressure Screening: Patient was found to have normal blood pressure on screening and does not require follow-up. This is a 46-year-old male who presents to the ED with a chief complaint of right groin pain. The patient states that he has had some discomfort in the area that started about 6 weeks ago or so. The patient works at [employer] and does heavy lifting. The patient states that he was at his other job today and developed pain in the right groin and came in for evaluation. The patient has a reducible right inguinal hernia on exam. I spoke with Dr. Caro about the patient. He will see the patient tomorrow 2:30 p.m. in the office. The patient is felt to be stable for discharge. He is advised not to lift anything heavier than 5 pounds. Consults Time Called: 1654 Consulting Physician: Dr. Caro - General Surgery Returned Call: [phone] Discussed the patient's case with Dr. Caro. He will see the patient tomorrow at 1430. Impression Primary Impression: Inguinal hernia Scribe Attestation The scribe's documentation has been prepared under my direction and personally reviewed by me in its entirety. I confirm that the note above accurately reflects all work, treatment, procedures, and medical decision making performed by me. Departure Information Dispostion Home / Self-Care Referrals August Demarco D.O. (PCP) Radha Caro MD Forms HOME CARE DOCUMENTATION FORM, IMPORTANT VISIT INFORMATION, WORK / SCHOOL INSTRUCTIONS Patient Instructions ED Hernia Inguinal, [facility] Additional Instructions No lifting more than 5 pounds. Use and abdominal binder or back support with extra padding in the right inguinal area. If you develop pain in the area, lay down and gently palpate the area to ensure that the hernia has resolved. If this does not resolve with lying down, return for evaluation for incarcerated hernia. Follow-up with Dr. Caro tomorrow at 2:30 in his office. Call tomorrow morning to confirm the time.
[2016-08-30] MEDS ORDERED: IBUP-1050 PO (11:29)
== END 2016-08-27 17:15 | disposition home or self-care (01) ==
LOC: C.EDB 16:35 → C.EDC 17:15
DX: K40.90 Unilateral inguinal hernia, without obstruction or gangrene, not specified as recurrent (principal); J45.909 Unspecified asthma, uncomplicated; I25.10 Atherosclerotic heart disease of native coronary artery without angina pectoris; E78.5 Hyperlipidemia, unspecified; I10 Essential (primary) hypertension; G40.909 Epilepsy, unspecified, not intractable, without status epilepticus; F17.200 Nicotine dependence, unspecified, uncomplicated; Z98.61 Coronary angioplasty status; Z98.890 Other specified postprocedural states; Z81.1 Family history of alcohol abuse and dependence; Z82.49 Family history of ischemic heart disease and other diseases of the circulatory system; Z83.49 Family history of other endocrine, nutritional and metabolic diseases; Z79.82 Long term (current) use of aspirin; Z79.899 Other long term (current) drug therapy

== ENCOUNTER → 2016-09-04 | Day surgery (SDC) | payer BC ==
[2016-08-30 11:29] VITALS: BMI 33.0
--- NOTE | 2016-08-30 12:10 | PAT Medication Instructions ---
Service Date Aug 30, 2016. Current Home Medication List Aspirin (Aspirin EC Low Dose), 81 MG PO QAM Ibuprofen (Advil), 600-800 MG PO UD PRN for Pain Metoprolol Tartrate (Lopressor), 12.5 MG PO BID Nitroglycerin (Nitrostat), 0.4 MG SL UD PRN for Chest Pain Simvastatin (Zocor), 1 TAB PO HS Medication Instructions For Your Scheduled Surgery - Continue as directed: Nitroglycerin (Nitrostat), 0.4 MG SL UD PRN for Chest Pain - Hold the following medications the morning of surgery: Ibuprofen (Advil), 600-800 MG PO UD PRN for Pain (otherwise okay to continue per surgeon) - Take the following medications the morning of surgery with a sip of water OTHERWISE NOTHING TO EAT OR DRINK AFTER MIDNIGHT: Metoprolol Tartrate (Lopressor), 12.5 MG PO BID Aspirin (Aspirin EC Low Dose), 81 MG PO QAM - Take the following medications as scheduled the night before surgery: Simvastatin (Zocor), 1 TAB PO HS Metoprolol Tartrate (Lopressor), 12.5 MG PO BID If you have any questions please call us at [phone] or [phone] or [phone]
[~2016-09-04] VITALS: Ht 172.7 cm; Wt 100.3 kg
[~2016-09-04] MED LIST changes: +ATROPINE SULFATE 0.1 MG/ML 5ML SYR IV PRN; +BACITRACIN OINT 15 GM TUBE ONE; +BUPIVACAINE 0.5 % 5 MG/1 ML MPF 30ML VIAL ONE; +CEFAZOLIN 2000 MG/60 ML D5W IV SCH; +CEFAZOLIN IV 2,000 MG/60 ML D5W IV ONE; +DEXAMETHASONE SOD INJ 4 MG/ML VIAL ONE; +EpHEDrine SULFATE INJ 50 MG/ML AMP IV PRN; +FENTANYL CITRATE INJ 50 MCG/1 ML 2 ML VIAL IV PRN; +FENTANYL CITRATE INJ 50 MCG/1 ML 2 ML VIAL ONE; +HYDROmorphone INJ 1 MG/ML SYR IV PRN; +IBUP-1050 PO; +LABETALOL HCL IV 5 MG/ML 20ML IV PRN; +LACTATED RINGER'S 1000ML 1,000 ML IV SCH; +LIDOCAINE HCL 1% 20 ML VIAL ONE; +LIDOCAINE HCL 2% 2 ML VIAL (20MG/ML) ONE; +MEPERIDINE HCL 25 MG/ML CARP IV PRN; +MIDAZOLAM HCL 1 MG/ML 2ML VIAL ONE; +MoRPHine SULFATE 2 MG/ML CARP IV PRN; +MoRPHine SULFATE 4 MG/ML 1 ML CARP\\VIAL IV PRN; +ONDANSETRON INJ 2 MG/ML 2 ML VIAL IV PRN; +ONDANSETRON INJ 2 MG/ML 2 ML VIAL ONE; +OXYC-57 PO; +OXYCODONE/ACETAMINOPHEN 5-325 TAB PO PRN; +PROPOFOL IV EMULSION 10 MG/ML 20 ML VIAL IV ONE
[2016-09-04 12:42] VITALS: BP 113/72; PULSE 61; TEMP 36.6; O2SAT 99; Ht 172.7 cm; Wt 100.3 kg
--- NOTE | 2016-09-04 13:08 | History & Physical Bridge Note ---
H&P Re-Evaluation Bridge Note: I have examined the patient, reviewed the History & Physical and in the interval since the performance of the History & Physical I have noted the following changes of clinical significance: No changes noted
--- NOTE | 2016-09-04 14:39 | [facility] Post Operative Brief Note ---
Immediate Operative Summary Operative Date Sep 04, 2016. Pre-Operative Diagnosis Right Inguinal Hernia Post-Operative Diagnosis Right Inguinal Hernia Procedure(s) Performed Open Right Inguinal Hernia Repair with Marlex Mesh Plug Surgeon Dr. Radha Caro Human Resources Team Member Surgeon(s) Melonie Bass PA-C Estimated Blood Loss 10 ml Findings right direct inguinal hernia Fluids (cc crystalloids) 800ml Specimens none per surgeon Dr. Radha Caro Drains none Anesthesia LMA Complication(s) None Disposition Recovery Room / PACU
--- NOTE | 2016-09-04 14:54 | Discharge Instructions ---
Discharge Instructions Date of Service Sep 04, 2016. Admission Reason for Admission: Right Inguinal Pain Discharge Discharge Diagnosis / Problem: right inguinal hernia, s/p inguinal hernia repair with mesh Discharge Goals Goal(s): Decrease discomfort Activity Recommendations Activity Limitations: as noted below No heavy lifting over 10 pounds for 4-6 weeks No strenuous activity until cleared by surgeon walking and light activity is encouraged to prevent blood clots No submerging incision underwater for 2 weeks (no baths,swimming, or hot tubs) No driving while taking narcotic pain medication. . Instructions / Follow-Up Instructions / Follow-Up You may shower in 3 days, sponge bath in meantime. You may wash hair and let water hit back. Keep steri strips on incision for 10 days, they may fall off before Follow-up with Dr. Caro in 1 week, dioni call office at [phone] if you do not already have an appointment Current Hospital Diet Patient's current hospital diet: Discharge Diet Recommended Diet: Regular Diet Procedures Procedures Performed: Open Right Inguinal Hernia Repair with Marlex Mesh Plug Pending Studies Studies pending at discharge: no Laboratory Results Hemoglobin A1c Test 07/11/16 03:25 Range/Units Estimated Average Glucose 111 mg/dl Hemoglobin A1c 5.5 4.5-5.6 % Lipid Panel Test 07/11/16 03:25 Range/Units Triglycerides Level 144 0-150 mg/dl Cholesterol Level 223 H 0-200 mg/dl HDL Cholesterol 40 mg/dl Cholesterol/HDL Ratio 5.6 LDL Cholesterol, Calculated 154 mg/dl Medical Emergencies . Who to Call and When: Medical Emergencies: If at any time you feel your situation is an emergency, please call 911 immediately. . Non-Emergent Contact Non-Emergency issues call your: Primary Care Provider, Surgeon Call Non-Emergent contact if: you have a fever, temperature is above 100.5, your pain is not controlled, your pain is worsening, wound has increased drainage, wound has increased redness, wound has increased pain . "Provider Documentation" section prepared by Melonie Bass. . VTE Core Measure Inpt VTE Proph given/why not?: SCD's [place] Drug Monitoring Program Search Results: patient reviewed within database, no issues identified
[2016-09-04 15:36] VITALS: BP 146/74; PULSE 72; TEMP 36.6; O2SAT 97
--- NOTE | 2016-09-04 15:40 | Anesthesiology Progress Note ---
Anesthesia Post Op Note Date & Time Sep 04, 2016 at 15:40 Vital Signs Pain Intensity: 3 Vital Signs Past 12 Hours Date Time Temp Pulse Resp B/P (MAP) Pulse Ox O2 Delivery O2 Flow Rate FiO2 09/04/16 15:26 137/96 09/04/16 15:23 80 25 09/04/16 15:23 83 25 96 09/04/16 15:22 70 14 97 09/04/16 15:22 71 14 09/04/16 15:21 121/73 09/04/16 15:17 59 16 92 09/04/16 15:17 55 16 09/04/16 15:16 129/84 09/04/16 15:12 57 12 09/04/16 15:12 56 12 100 09/04/16 15:11 74 12 09/04/16 15:11 77 12 130/84 100 09/04/16 15:06 55 12 09/04/16 15:06 50 12 122/88 100 09/04/16 15:02 125/77 09/04/16 15:01 63 16 09/04/16 15:01 61 16 100 09/04/16 14:56 50 13 09/04/16 14:56 50 13 146/87 100 09/04/16 14:52 118/75 09/04/16 14:51 36.0 66 16 118/75 100 Mask 10 09/04/16 14:51 58 18 09/04/16 14:51 59 18 97 09/04/16 12:42 36.6 61 18 113/72 (86) 99 Room Air Notes Mental Status: alert / awake / arousable, participated in evaluation Pt Amnestic to Procedure: Yes Nausea / Vomiting: adequately controlled Pain: adequately controlled Airway Patency, RR, SpO2: stable & adequate BP & HR: stable & adequate Hydration State: stable & adequate Anesthetic Complications: no major complications apparent
[2016-09-04 16:05] VITALS: BP 132/82; PULSE 78; O2SAT 96
[2016-09-04 16:35] VITALS: BP 136/64; PULSE 85; TEMP 36.8; O2SAT 97
--- NOTE | 2016-09-04 23:42 | OPERATIVE REPORT ---
DATE OF OPERATION: 09/04/2016 PREOPERATIVE DIAGNOSIS: Right inguinal hernia. POSTOPERATIVE DIAGNOSIS: Right direct inguinal hernia. SURGEON: Dr. Radha Caro M.D. OPERATION: Open repair, right inguinal hernia, with mesh. ACID CONDITIONING WORKER: Melonie Bass PA-C. ANESTHESIA: LMA plus local. ESTIMATED BLOOD LOSS: About 10 mL FINDINGS: Right direct inguinal hernia. COMPLICATIONS: None. INDICATIONS FOR THE PROCEDURE: This is a 46-year-old gentleman, who presented with a right inguinal hernia. The patient feels pain and bulging and the patient will be required to do open repair of right inguinal hernia with a mesh. I did talk to the patient about the benefit and risk, alternate procedure, I indicated the risks may include, but not limited, such as bleeding, infection, hernia recurrence, chronic incision pain, may need more procedures, seroma and the risk of anesthesia. The patient understands. He signed informed consent and I answered all questions. DETAILS OF PROCEDURE: We brought the patient to the OR, put the patient in the supine position, the patient received SCDs on bilateral legs to prevent DVT, patient received 2 grams Ancef IV for prophylactic antibiotic, patient received LMA by the anesthesiology without difficulty. The lower abdomen was prepped and draped in routine sterile fashion. After a timeout, I injected local anesthesia by using 1% lidocaine mixed with 0.5% Marcaine around the right inguinal area and then made about a 4-cm incision on the right inguinal area and opened the subcutaneous layer, reached the external fascia, opened the external fascia and then we immobilized the cord structure and found the patient had a direct hernia. The hernia sac was mobilized and reduced back to the abdominal cavity. Then I chose the extra larger plug with a mesh, used the extra plug to plug the reversed hernia sac. Then I put a 2-0 Prolene to close inverse the hernia sac on the hernia neck. Then I chose the mesh to reinforce the posterior wall by using 2-0 Vicryl, the mesh to the conjoined tendon, continuous running with 2-0 Vicryl and then the mesh to the inguinal ligament, continuous running 2-0 Vicryl. The two sutures met together and tied to recreate the internal ring, rechecked the mesh and it sat nicely with no tension. Hemostasis obtained. Then, I used 2-0 Vicryl to close the external fascia, continuous running and used another 2-0 Vicryl to close the subcutaneous layer, continuous running, closed skin by using 4-0 Vicryl. We put the dressing on. All the instrument, needle and sponge counts were correct x2 at the end of case. The patient tolerated the procedure well. After the procedure, the patient transferred to recovery room in stable condition. After the procedure, I did talk to the patient's family member about the OR findings and the procedure we did. She understands. Also, I gave the patient postop care instructions, before and after the procedure. They understand. I attest to the content of the Intraoperative Record and any orders documented therein. Any exceptions are noted below. LEO
== END | disposition home or self-care (01) ==
LOC: C.ACU 12:07
PROVIDERS: ATTEND Surgery
DX: K40.90 Unilateral inguinal hernia, without obstruction or gangrene, not specified as recurrent (principal); I25.10 Atherosclerotic heart disease of native coronary artery without angina pectoris; I10 Essential (primary) hypertension; E78.5 Hyperlipidemia, unspecified; Z98.61 Coronary angioplasty status; F17.210 Nicotine dependence, cigarettes, uncomplicated; Z79.82 Long term (current) use of aspirin; Z79.899 Other long term (current) drug therapy

== ENCOUNTER 2016-09-29 16:20 | Emergency (ER) | payer BC, OTHER ==
[~2016-09-29] VITALS: Ht 174 cm; Wt 104.6 kg
[~2016-09-29 16:20] MED LIST changes: -ATROPINE SULFATE 0.1 MG/ML 5ML SYR IV PRN; -BACITRACIN OINT 15 GM TUBE ONE; -BUPIVACAINE 0.5 % 5 MG/1 ML MPF 30ML VIAL ONE; -CEFAZOLIN 2000 MG/60 ML D5W IV SCH; -CEFAZOLIN IV 2,000 MG/60 ML D5W IV ONE; -DEXAMETHASONE SOD INJ 4 MG/ML VIAL ONE; -EpHEDrine SULFATE INJ 50 MG/ML AMP IV PRN; -FENTANYL CITRATE INJ 50 MCG/1 ML 2 ML VIAL IV PRN; -FENTANYL CITRATE INJ 50 MCG/1 ML 2 ML VIAL ONE; -HYDROmorphone INJ 1 MG/ML SYR IV PRN; -LABETALOL HCL IV 5 MG/ML 20ML IV PRN; -LACTATED RINGER'S 1000ML 1,000 ML IV SCH; -LIDOCAINE HCL 1% 20 ML VIAL ONE; -LIDOCAINE HCL 2% 2 ML VIAL (20MG/ML) ONE; -MEPERIDINE HCL 25 MG/ML CARP IV PRN; -MIDAZOLAM HCL 1 MG/ML 2ML VIAL ONE; -MoRPHine SULFATE 2 MG/ML CARP IV PRN; -MoRPHine SULFATE 4 MG/ML 1 ML CARP\\VIAL IV PRN; -ONDANSETRON INJ 2 MG/ML 2 ML VIAL IV PRN; -ONDANSETRON INJ 2 MG/ML 2 ML VIAL ONE; -OXYCODONE/ACETAMINOPHEN 5-325 TAB PO PRN; -PROPOFOL IV EMULSION 10 MG/ML 20 ML VIAL IV ONE
[2016-09-29 16:28] VITALS: TEMP 36.8; Ht 174 cm; Wt 104.6 kg
[2016-09-29] MEDS ORDERED: DIPHTHERIA/TETANUS/PERTUSSIS 0.5 ML SYR/VIAL IM. ONE (16:45)
[2016-09-29] MEDS ORDERED: XYLOCAINE 1%/SOD BICARB 20 ML VIAL INFIL ONE (16:45)
--- NOTE | 2016-09-29 16:57 | EMERGENCY ROOM VISIT NOTE ---
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 The bleeding has not stopped. Denies weakness or numbness of the finger. The patient has full range of motion of the fingers. The patient denies any pain. The patient denies any other injuries. The patient's tetanus shot is not up to date. REVIEW OF SYSTEMS: A 6 system review of systems was completed with positives and pertinent negatives listed in the HPI. ALLERGIES: No known drug allergies MEDICATIONS: See nursing notes PMH: Angioplasty, hyperlipidemia SOCIAL HISTORY: The patient lives locally. He is a smoker PHYSICAL EXAM: Vital Signs: Reviewed Nurse's notes, vital signs stable. GENERAL : This is a 46-year-old male, in no acute distress, well developed, well nourished. SKIN: There is a 2.5 cm long laceration on the palmar aspect of the left second finger. The edges gape apart with traction. There is no foreign material in the wound and it looks clean. There is minimal bleeding. No deep structures such as tendons, bones, or nerves are seen in the base of the wound. Extension and flexion of the finger is full and strong. Full range of motion of the wrist and other fingers. Capillary refill less than 2 seconds. Normal sensation to light and sharp touch. EMERGENCY DEPARTMENT COURSE: I examined the patient. Using sterile technique the wound was cleaned with Betadine. 3 ml of 1% buffered lidocaine was used to infiltrate the wound to anesthetize the patient. The area was sterilely draped. Once the patient was numb, the wound was copiously irrigated under pressure with sterile saline. The wound was explored in a bloodless field after tourniquet application and there were no deep structures such as tendons, bone, or ligaments present. The laceration was repaired using simple interrupted 5-0 nylon sutures. The patient tolerated the procedure well. The bleeding stopped. The area was cleaned with sterile saline and dressed with bacitracin ointment and bandage. The patient was given a tetanus booster. The patient was discharged home in good condition. Problem List Medical Problems: (1) Asthma Permanent Comment: during childhood; in remission Status: Chronic (2) CAD (coronary artery disease) Permanent Comment: S/p TIN to LAD 01/14/2013 Cardiac cath 2013- "widely patent LAD stent, Mild non obstructive coronary artery disease --20% mid LAD stenosis, 30% origin of PDA, Normal LV systolic function, Mildly elevated intracardiac pressures" Status: Chronic (3) Epilepsy Permanent Comment: no seizure since patient was a teenager Status: Chronic (4) History of placement of stent in LAD coronary artery Permanent Comment: ITN to LAD in 01/2013 Status: Resolved Surgical Problems: (1) History of hip surgery Status: Chronic (2) Hx of cardiac cath Status: Resolved Current/Historical Medications Scheduled Aspirin (Aspirin EC Low Dose), 81 MG PO QAM Metoprolol Tartrate (Lopressor), 12.5 MG PO BID Simvastatin (Zocor), 1 TAB PO HS Scheduled PRN Ibuprofen (Advil), 600-800 MG PO UD PRN for Pain Nitroglycerin (Nitrostat), 0.4 MG SL UD PRN for Chest Pain Allergies Coded Allergies: No Known Allergies (Unverified , 09/29/16) Vital Signs Date Time Temp Pulse Resp B/P (MAP) Pulse Ox O2 Delivery O2 Flow Rate FiO2 09/29/16 17:35 87 16 123/79 95 09/29/16 16:28 36.8 94 16 127/82 94 Room Air Medications Administered Medications (Trade) Dose Ordered Sig/Gio Route Start Time Stop Time Status Last Admin Dose Admin Diphtheria/ Pertussis/Tetanus Vacc (Adacel Inj) 0.5 ml ONCE ONCE IM. 09/29/16 16:45 09/29/16 16:46 DC 09/29/16 17:30 0.5 ML Departure Information Impression Primary Impression: Finger laceration Additional Impression: Work related injury Dispostion Home / Self-Care Condition GOOD Referrals August Demarco, D.O. (PCP) Patient Instructions ED Laceration All, [facility] Additional Instructions Keep wound clean and dry. Do not allow any crusting or dried blood to accumulate on sutures. If this occurs, use a 1:1 solution of hydrogen peroxide/ water on a Q-tip to clean the wound. Use an antibiotic ointment for 3-4 days, then let wound dry. Suture removal in 10-12 days. Return sooner for any signs of infection (increasing redness, swelling, drainage). Ice and elevate for swelling and pain. Ibuprofen 600 mg every 6 hrs for pain. Keep covered when in sun until sutures removed then SPF 50 or higher for one year. Vitamin E oil if desired two weeks after suture removal for reduction of scar. Problem Qualifiers Primary Impression: Finger laceration Encounter type: initial encounter
[2016-09-29 17:35] VITALS: BP 123/79; PULSE 87; O2SAT 95
== END 2016-09-29 17:35 | disposition home or self-care (01) ==
LOC: C.EDB 16:22 → C.EDD 17:35
DX: S61.211A Laceration without foreign body of left index finger without damage to nail, initial encounter (principal); W45.8XXA Other foreign body or object entering through skin, initial encounter; Y99.0 Civilian activity done for income or pay; E78.5 Hyperlipidemia, unspecified; F17.200 Nicotine dependence, unspecified, uncomplicated; J45.909 Unspecified asthma, uncomplicated; G40.909 Epilepsy, unspecified, not intractable, without status epilepticus; Z23 Encounter for immunization; Z95.5 Presence of coronary angioplasty implant and graft; Z79.82 Long term (current) use of aspirin

== ENCOUNTER 2017-02-20 15:05 | Emergency (ER) | payer BC, OTHER ==
[~2017-02-20] VITALS: Ht 175.3 cm; Wt 104.5 kg
[~2017-02-20 15:05] MED LIST changes: -OXYC-57 PO
[2017-02-20 15:12] VITALS: TEMP 36.7; Ht 175.3 cm; Wt 104.5 kg
[2017-02-20 16:42] LABS: HEMATOCRIT 47.9 % (42-52); HEMOGLOBIN 16.4 g/dL (14.0-18.0); MEAN CELL VOLUME 88.5 fL (80-100); MEAN CORPUSCULAR HEMOGLOBIN 30.3 pg (25-34); MEAN CORPUSCULAR HGB CONC 34.2 g/dl (32-36); MEAN PLATELET VOLUME 9.7 fL (7.4-10.4); PLATELET COUNT 260 K/uL (130-400); RED CELL DISTRIBUTION WIDTH CV 13.6 % (11.5-14.5); WHITE BLOOD COUNT 9.78 K/uL (4.8-10.8)
--- NOTE | 2017-02-20 16:47 | EMERGENCY ROOM VISIT NOTE ---
History First contact with patient: 15:53 Chief Complaint: CARDIAC ASSESSMENT Stated Complaint: UNEVEN HEART RATE;CHEST AND ARM PAIN Nursing Triage Summary: Patient ambulatory to triage with an upright and steady gait, states "I was at work last night and was under a lot of stress. I noticed a spasm like pain in my left bicep that radiated into the left armpit and left side of my chest. I think it is all stress related. Since about 2200 last night, I have been having that pain on and off. I noticed, also, some numbness in my left foot only, which is coming and going. I have an odd pressure in the back of my head and in my eyes which is odd because I never get headaches. I have a stent in my LAD but I am really noncompliant with my medications and doctor's appointments." History of Present Illness The patient is a 46 year old male who presents to the Emergency Room with complaint of sharp pain in his foot He was working last night at 9pm when he had a sudden intense pressure in his left foot. It felt like very intense pins and needles. At the same time he had similar symptoms in his left arm and along the lateral aspect of his left chest wall. These pains have been intermittent and last for 1-2 minutes at a time. Nothing seems to make this pain better and he rates it as a 6/10 in severity. Associated symptoms include chest palpitations, tensions like headache behind the left eye and neck pain. Of note he had an DE in 2012 with a stent placed to his left LAD Review of Systems CONSTITUTIONAL: No fever, chills, sweats or night sweats. No recent infections. No weight loss or weight gain. NEUROLOGIC: + headaches, no dizziness or syncopal episodes. HEENT: No hearing or visual changes. No sinus or nasal issues. No mouth sores, thrush or oral lesions. CARDIOVASCULAR: +chest pain and palpitations RESPIRATORY: No SOB, dyspnea, cough or hemoptysis. GASTROINTESTINAL: No nausea, vomiting, diarrhea, constipation, reflux, melena or hematochezia. GENITOURINARY: No dysuria, frequency, urgency, incontinence or hematuria. MUSCULOSKELETAL: pain in his left foot and left bicep SKIN: No rashes or skin lesions. No hair loss or nail changes. HEMATOLOGIC: No bleeding or abnormal bruising PSYCHOLOGICAL: +stress Past Medical/Surgical History Medical Problems: (1) Asthma (2) CAD (coronary artery disease) (3) Dyslipidemia (4) Epilepsy (5) History of placement of stent in LAD coronary artery (6) Hypertension Surgical Problems: (1) History of hip surgery (2) Hx of cardiac cath Family History Alchohol abuse FATHER Angina MOTHER CABG FATHER GRANDFATHER (50's) Dyslipidemia FATHER BROTHER Hypertension FATHER MOTHER Irregular heart rhythms BROTHER DE in 20's or 30's FATHER Social History Smoking Status: Former Smoker Alcohol Use: none Drug Use: marijuana, other Marital Status: Housing Status: lives with family Occupation Status: employed Current/Historical Medications Scheduled Aspirin (Aspirin EC Low Dose), 81 MG PO QAM Metoprolol Tartrate (Lopressor), 12.5 MG PO BID Simvastatin (Zocor), 1 TAB PO HS Scheduled PRN Ibuprofen (Advil), 600-800 MG PO UD PRN for Pain Nitroglycerin (Nitrostat), 0.4 MG SL UD PRN for Chest Pain Allergies NKDA Physical Exam Vital Signs Date Time Temp Pulse Resp B/P (MAP) Pulse Ox O2 Delivery O2 Flow Rate FiO2 02/20/17 16:57 63 20 128/77 96 Room Air 02/20/17 16:21 70 02/20/17 15:12 97 Room Air 02/20/17 15:12 36.7 75 18 141/79 97 Room Air Physical Exam HEENT: Head - normocephalic and atraumatic. Pupils are equal, round, and reactive to light. Extraocular eye muscles are intact and sclera are anicteric. Ears - bilaterally patent canals with noninjected tympanic membranes and no evidence of hemotympanum. Nose - moist nasal mucosa without discharge. Mouth - moist buccal mucosa. Oropharynx is nonerythematous and there is no tonsillar exudate or edema noted. Neck: Supple; no JVD, nuchal rigidity, cervical lymphadenopathy, or auscultated bruits. Heart: Regular rate and rhythm. There is a normal S1 and S2 with no murmurs, clicks, or gallops appreciated. Lungs: Clear to auscultation bilaterally with no wheezes, rales, or rhonchi. Abdomen: Soft, completely nontender, nondistended, with good bowel sounds. There are no palpable pulsatile masses or hepatosplenomegaly. There is no guarding, rigidity, or rebound noted. Extremities: No evidence of cyanosis, clubbing, or edema. There are easily palpable peripheral pulses. Neuro:The patient is awake and alert, oriented to day, time, and place. Muscle strength is 5/5 in all 4 extremities. The patient has equal timing inspector strength and equal pedal push and pull. There are no cerebellar signs. Decreased sensation on dorsal aspect of the left foot. CN: 2-12 intact without any focal deficits Medical Decision & Procedures Laboratory Results 02/20/17 16:27 02/20/17 16:27 Test 02/20/17 16:27 Red Blood Count 5.41 M/uL (4.7-6.1) Mean Corpuscular Volume 88.5 fL (80-100) Mean Corpuscular Hemoglobin 30.3 pg (25-34) Mean Corpuscular Hemoglobin Concent 34.2 g/dl (32-36) RDW Standard Deviation 44.0 fL (36.4-46.3) RDW Coefficient of Variation 13.6 % (11.5-14.5) Mean Platelet Volume 9.7 fL (7.4-10.4) Anion Gap 7.0 mmol/L (3-11) Est Creatinine Clear Calc Drug Dose 138.9 ml/min Estimated GFR () 125.0 Estimated GFR (Non- 107.9 BUN/Creatinine Ratio 17.5 (10-20) Calcium Level 9.0 mg/dl (8.5-10.1) Magnesium Level 2.4 mg/dl (1.8-2.4) Total Bilirubin 0.4 mg/dl (0.2-1) Aspartate Amino Transf (AST/SGOT) 19 U/L (15-37) Alanine Aminotransferase (ALT/SGPT) 48 U/L (12-78) Alkaline Phosphatase 112 U/L (45-117) Troponin I < 0.015 ng/ml (0-0.045) Pro-B-Type Natriuretic Peptide 14 pg/ml (0-450) Total Protein 7.7 gm/dl (6.4-8.2) Albumin 3.9 gm/dl (3.4-5.0) Globulin 3.8 gm/dl (2.5-4.0) Albumin/Globulin Ratio 1.0 (0.9-2) ECG Indication: chest pain Rhythm: normal sinus Findings: no acute ischemic change, no ectopy ED Course 1600: I saw the patient in C7 and a full history and examination were performed 1625: I spoke to Dr. Buitrago and I ordered lab work and a CXR and CT of the patients head 1730: I reassessed the patient and he was still having mild symptoms in his left chest. He said he was going to follow up with his PCP. His lab workup and imaging were normal. He was in agreement with the plan Medical Decision 46 year old male with neuropathic symptoms in his left upper arm, left foot associated with a headache and palpitations. His vital signs were stable throughout his ED course. He had a normal EKG, CXR and CT head. His troponin, CBC, CMP, BNP and mag were unremarkable. Patient did mention he has been stressed and symptoms may be related to his stress. His symptoms sounded similar to a migraine which may be the cause of his symptoms. He is going to be following up with his PCP for further workup and a possible neurology referral. Impression Primary Impression: Neuropathy Departure Information Dispostion Home / Self-Care Condition GOOD Referrals August Demarco, D.O. (PCP) Patient Instructions My [facility] Additional Instructions We did a CXR, EKG, CT scan of your head, CBC, CMP, and troponin. All your lab work and imaging returned as normal and your vital signs remained stable while you were in the emergency department. Please follow up with your PCP in the next 2-3 days. If you have any worsening chest pain, shortness of breath, headache and dizziness then please come back to the emergency department
--- NOTE | 2017-02-20 16:50 | DIAGNOSTIC IMAGING REPORT ---
CT HEAD WITHOUT CONTRAST (CT) CLINICAL HISTORY: headache and neuropathy symptoms COMPARISON STUDY: 11/25/2013 TECHNIQUE: Axial CT of the brain is performed from the vertex to the skull base. IV contrast was not administered for this examination. A dose lowering technique was utilized adhering to the principles of ALARA. CT DOSE: 614.27 mGy.cm FINDINGS: No intra or extra-axial mass lesions are visualized. There is no CT evidence of acute cortical infarction. There is no evidence of midline shift. There is no acute hemorrhage. No calvarial fractures are visualized. There is no evidence of pathologic ventricular dilatation. There is no evidence of acute sinusitis IMPRESSION: No acute intracranial findings Electronically signed by: Christos Doshi M.D. 02/20/2017 4:49 PM Dictated Date/Time: 02/20/2017 4:48 PM
[2017-02-20 16:59] LABS: ALBUMIN 3.9 gm/dl (3.4-5.0); ALT/SGPT 48 U/L (12-78); BLOOD UREA NITROGEN 14 mg/dl (7-18); CARBON DIOXIDE 25 mmol/L (21-32); GLUCOSE 94 mg/dl (70-99); POTASSIUM 4.2 mmol/L (3.5-5.1); SODIUM 136 mmol/L (136-145)
[2017-02-20 17:09] LABS: ALKALINE PHOSPHATASE 112 U/L (45-117); AST/SGOT 19 U/L (15-37); TOTAL PROTEIN 7.7 gm/dl (6.4-8.2)
--- NOTE | 2017-02-20 17:13 | DIAGNOSTIC IMAGING REPORT ---
CHEST 2 VIEWS ROUTINE CLINICAL HISTORY: Chest discomfort COMPARISON STUDY: 07/10/2016 FINDINGS: The cardiac and mediastinal contours are normal. There is no evidence of focal pulmonary consolidation. There is no evidence of failure. No pleural effusions are visualized.[ IMPRESSION: No active disease in the chest. Electronically signed by: Christos Doshi M.D. 02/20/2017 5:12 PM Dictated Date/Time: 02/20/2017 5:11 PM
[2017-02-20 17:31] VITALS: BP 123/80; PULSE 68; O2SAT 95
--- NOTE | 2017-02-20 22:53 | EMERGENCY ROOM VISIT NOTE ---
ED Visit Note First contact with patient: 15:53 Resident Physician Supervision Note: I interviewed and examined the patient. Discussed with Dr. Nicholas and agree with findings and plan as documented in the note. Any exceptions or clarifications are listed here: [None] Documented By: Denise Buitrago
== END 2017-02-20 17:33 | disposition home or self-care (01) ==
LOC: C.EDB 15:07 → C.EDC 17:33
DX: G62.9 Polyneuropathy, unspecified (principal); R00.2 Palpitations; J45.909 Unspecified asthma, uncomplicated; R51 Headache; I10 Essential (primary) hypertension; F12.90 Cannabis use, unspecified, uncomplicated; Z87.891 Personal history of nicotine dependence; Z81.1 Family history of alcohol abuse and dependence; Z82.49 Family history of ischemic heart disease and other diseases of the circulatory system; Z83.49 Family history of other endocrine, nutritional and metabolic diseases

== ENCOUNTER 2017-05-05 08:36 | Emergency (ER) | payer BC ==
[~2017-05-05] VITALS: Ht 172.7 cm; Wt 100.7 kg
[2017-05-05 08:53] VITALS: Ht 172.7 cm; Wt 100.7 kg
[2017-05-05] MEDS ORDERED: TRAM-10 PO (09:09)
[2017-05-05] MEDS ORDERED: ETOD500T PO (09:09)
[2017-05-05] MEDS ORDERED: ENOX40IN SQ (09:09)
[2017-05-05] MEDS ORDERED: SIMV40TA2 PO (09:09)
[2017-05-05] MEDS ORDERED: METO25TA56 PO (09:09)
[2017-05-05] MEDS ORDERED: ACET-1256 PO (09:09)
--- NOTE | 2017-05-05 10:15 | DIAGNOSTIC IMAGING REPORT ---
R VENOUS DOPP LOWER EXT UNILAT CLINICAL HISTORY: R leg edema pain. Edema. TECHNIQUE: Venous Doppler COMPARISON STUDY: 9 FINDINGS: Normal study IMPRESSION: Normal study The above report was generated using voice recognition software. It may contain grammatical, syntax or spelling errors. Electronically signed by: Troy Trivedi M.D. 05/05/2017 10:14 AM Dictated Date/Time: 05/05/2017 10:13 AM
[2017-05-05 10:45] VITALS: BP 131/64; PULSE 77; TEMP 36.6; O2SAT 99
--- NOTE | 2017-05-05 16:42 | EMERGENCY ROOM VISIT NOTE ---
History First contact with patient: 09:00 Chief Complaint: WOUND INFECTION Stated Complaint: POSSIBLE INFECTION IN R LEG/R HIP REPLACEMENT 04/30 Nursing Triage Summary: patient states he had a total hip replacement last sunday and was discharged the . patient c/o right leg swelling. patient states the swelling hasn't gone down. "it just feels really tight." History of Present Illness The patient is a 46 year old white male who presents to the Emergency Room with complaints of right leg edema and wet bandages on his right hip. Patient recently had a total hip arthroplasty on 04/30/2017. He was discharged on 2017. He states last night he noticed that the lower end of his bandages were wet. He woke this morning to find that they were also wet. He has had an increase in right leg edema over the last 2 days. He became concerned and came here for evaluation. He is using Lovenox 40 mg daily. No shortness of breath. No fevers or chills. He denies getting the bandages wet, and thinks something from his wound must be leaking. He has not seen his orthopedist. Review of Systems REVIEW OF SYSTEM: HEENT: No dizziness, visual problems, hearing loss, or tinnitus. There is no difficulty swallowing and no oral lesions are present. PULMONARY: No cough, sputum production or hemoptysis. CARDIOVASCULAR: No chest pain, palpitations, or peripheral edema. GASTROINTESTINAL: No diarrhea, constipation, nausea, vomiting, or abdominal pain. GENITOURINARY: No dysuria, frequency, urgency or nocturia. NEUROLOGIC: No weakness, muscle tenderness, or history of neurological problems. MUSCULOSKELETAL: No history of joint tenderness/swelling. Positive history of arthritis and arthralgias. SKIN: No rashes or lesions. PSYCHIATRIC: No history of depression or mental illness. ENDOCRINE: No history of diabetes, thyroid disorders, or abnormal hair growth. Past Medical/Surgical History Medical Problems: (1) Asthma (2) CAD (coronary artery disease) (3) Dyslipidemia (4) Epilepsy (5) History of placement of stent in LAD coronary artery (6) Hypertension Surgical Problems: (1) History of hip surgery (2) Hx of cardiac cath Family History Alchohol abuse FATHER Angina MOTHER CABG FATHER GRANDFATHER (50's) Dyslipidemia FATHER BROTHER Hypertension FATHER MOTHER Irregular heart rhythms BROTHER [place] in 20's or 30's FATHER Social History Smoking Status: Current Every Day Smoker Alcohol Use: none Drug Use: marijuana, other Marital Status: Housing Status: lives with family Occupation Status: employed Current/Historical Medications Scheduled Acetaminophen (Tylenol), 1,500 MG PO Q6 Enoxaparin (Lovenox), 40 MG SQ DAILY Etodolac (Etodolac Er), 500 MG PO BID Metoprolol Tartrate (Lopressor) (Lopressor), 12.5 MG PO BID Simvastatin (Zocor), 40 MG PO QPM Scheduled PRN Tramadol (Ultram), 50 MG PO DAILY PRN for Pain Physical Exam Vital Signs Date Time Temp Pulse Resp B/P (MAP) Pulse Ox O2 Delivery O2 Flow Rate FiO2 05/05/17 10:45 36.6 77 18 131/64 99 05/05/17 10:19 77 18 131/64 99 Room Air 05/05/17 08:53 36.6 98 20 143/88 97 Room Air Physical Exam General: Well-developed, well-nourished, middle-aged white male, in no acute distress. Laying on the bed. Alert and oriented. Skin: Warm and dry with good turgor. No rashes or lesions. He does have a large bandage present on the right hip. It is visibly discolored with blood. The distal end is moist. Upon removal, expected ecchymosis and edema. No erythema. He has a healing surgical wound. Steri-Strips are intact. No opening on the wound itself. He does have 2 puncture pat from previous drain exit sites. He is leaking serous fluid from these. It is slow but steady. He has generalized edema of the right leg extending to the foot. The patient is not diaphoretic. No abrasions. No signs of infection. Musculoskeletal: Supple motion of the right hip. It is located. No leg length inequality. He does ambulate with his walker. Expected postoperative edema and ecchymosis in the right hip. No discomfort with palpation over the gastroc , popliteal area, or distal thigh. He complains of some discomfort with palpation over the dorsum of the foot. Neurologic: Gross sensation is intact across the right leg by soft touch. Peripheral pulses are 2+. Medical Decision & Procedures ER Provider Diagnostic Interpretation: Venous Doppler ultrasound obtained today was negative for DVT. This was read by radiology. ED Course Patient was educated regarding today's findings. Conservative care measures were discussed. I did remove his soiled bandage and replace it with another pressure bandage. He was instructed to leave this in place until seen by his orthopedist. I did speak with the [facility] orthopedic PA injection press operator. She was in agreement with today's treatment and plan. He will follow-up in the office this week as scheduled. Ice and elevate the leg frequently to reduce swelling. Continue with his Lovenox daily. Return to the ED for any acute changes. Medical Decision Possibility of DVT, infection, dehiscence, and dependent edema were all considered. Medication Reconcilliation Current Medication List: was personally reviewed by me Blood Pressure Screening Patient's blood pressure: Normal blood pressure Impression Primary Impression: Encounter for post surgical wound check Additional Impression: Right leg swelling Departure Information Dispostion Home / Self-Care Referrals Maury Fuller M.D. Forms WORK / SCHOOL INSTRUCTIONS, HOME CARE DOCUMENTATION FORM, IMPORTANT VISIT INFORMATION Patient Instructions My [facility] Additional Instructions Keep the pressure dressing in place Ice and elevate the leg frequently to reduce swelling Follow up with your orthopedist as scheduled Return to the ED for any other concerns Continue using your Lovenox daily Problem Qualifiers
== END 2017-05-05 11:06 | disposition home or self-care (01) ==
LOC: C.EDB 08:38 → C.EDA 11:06
DX: Z48.89 Encounter for other specified surgical aftercare (principal); R60.0 Localized edema; J45.909 Unspecified asthma, uncomplicated; I25.10 Atherosclerotic heart disease of native coronary artery without angina pectoris; E78.5 Hyperlipidemia, unspecified; I10 Essential (primary) hypertension; G40.909 Epilepsy, unspecified, not intractable, without status epilepticus; F17.200 Nicotine dependence, unspecified, uncomplicated; F12.90 Cannabis use, unspecified, uncomplicated; Z96.641 Presence of right artificial hip joint; Z95.5 Presence of coronary angioplasty implant and graft; Z82.49 Family history of ischemic heart disease and other diseases of the circulatory system; Z81.1 Family history of alcohol abuse and dependence; Z79.01 Long term (current) use of anticoagulants